=== PATIENT | male | born 1995 | race Two or more races ===

== ENCOUNTER 2021-02-13 14:24 | Emergency (ER) | payer BC ==
[~2021-02-13] VITALS: Ht 180.3 cm; Wt 119.6 kg
[2021-02-13 14:25] VITALS: BP 145/73
[2021-02-13] MEDS ORDERED: PROAAER10 INH (14:33)
== END 2021-02-13 17:22 | disposition left against medical advice (07) ==
LOC: M ED 14:24
DX: Z53.21 Procedure and treatment not carried out due to patient leaving prior to being seen by health care provider (principal)